=== PATIENT | male | born 1935 | race Caucasian/White ===

== ENCOUNTER 2023-03-22 21:54 | Emergency (ER) | payer BC ==
[~2023-03-22] VITALS: Ht 172.7 cm; Wt 71.2 kg
[2023-03-22 22:20] VITALS: TEMP 98.4
[2023-03-22 22:54] VITALS: BP 119/66; O2SAT 98
== END 2023-03-22 22:55 | disposition home or self-care (01) ==
LOC: ER 21:57
DX: I10 Essential (primary) hypertension (principal); T50.915A Adverse effect of multiple unspecified drugs, medicaments and biological substances, initial encounter; Z96.642 Presence of left artificial hip joint; Y92.89 Other specified places as the place of occurrence of the external cause